=== PATIENT | male | born 1945 | race African-American/Black ===

== ENCOUNTER 2018-03-31 15:06 | Inpatient (IN) | payer MEDICARE, MEDICAID ==
[~2018-03-31] VITALS: Ht 170.2 cm; Wt 79.1 kg
[~2018-03-31 15:06] MED LIST: AMLO-511 PO; CARV12 PO; DIVA-78 PO; DOCU250C91 PO; FERR-89 PO; OMEP20 PO; QUET200T PO; TAMS0.4C32 PO; VITAD1000 PO
[2018-03-31 18:51] LABS: ANION GAP 9 mmol/L (8-16); CARBON DIOXIDE 29 mmol/L (22-29); CHLORIDE 103 mmol/L (98-107); CREATININE 1.14 mg/dL (0.60-1.30); GLUCOSE,RANDOM 94 mg/dL (70-110); INR 1.2 (0.9-1.1); POTASSIUM 3.5 mmol/L (3.5-5.1); SODIUM SERUM 141 mmol/L (136-145); UREA NITROGEN, BLOOD 13 mg/dL (7-18)
[2018-03-31 18:55] LABS: GLOMERULAR FILTR. RATE CALC > 60 mL/min (>60)
[2018-03-31 18:57] LABS: BASOPHILS % (AUTO) 0.4 % (0.0-2.0); EOSINOPHILS % (AUTO) 1.6 % (1.0-6.0); HEMATOCRIT 37.7 % (41-53); HEMOGLOBIN 12.2 g/dL (13.5-17.5); LYMPHOCYTES # (AUTO) 2.7 K/uL (1.0-4.8); LYMPHOCYTES % (AUTO) 48.2 % (22.0-44.0); MEAN CORPUSCULAR HEMOGLOBIN 21.9 pg (26.0-34.0); MEAN CORPUSCULAR HGB CONC 32.5 G/dL (31.0-37.0); MEAN CORPUSCULAR VOLUME 67 fL (80-100); MONOCYTES # (AUTO) 0.3 K/uL (0.1-1.0); MONOCYTES % (AUTO) 4.9 % (2.0-9.0); NEUTROPHILS # (AUTO) 2.5 K/uL (1.8-7.7); NEUTROPHILS % (AUTO) 44.9 % (40.0-70.0); PLATELET COUNT (AUTO) 176 K/uL (150-450); RED BLOOD CELL COUNT(AUTO) 5.59 MIL/uL (4.50-5.90); RED CELL DISTRIBUTION WIDTH 16.9 % (11.5-14.5)
[2018-03-31 19:16] LABS: ALANINE AMINOTRANSFERASE 75 U/L (12-78); ALBUMIN 3.5 g/dL (3.4-5.0); ALKALINE PHOSPHATASE 102 U/L (46-116); ASPARTATE AMINOTRANSFERASE 45 U/L (15-37); BILIRUBIN,TOTAL 0.9 mg/dL (0.1-1.0); CREATINE KINASE, TOTAL ONLY 133 U/L (39-308); TOTAL PROTEIN, SERUM 9.1 g/dL (6.4-8.2)
[2018-03-31 19:53] LABS: B-TYPE NATRIURETIC PEPTIDE 29 pg/mL (0-100)
[2018-03-31 21:49] LABS: APPEARANCE,URINE CLOUDY (CLEAR); BILIRUBIN,URINE NEGATIVE (NEGATIVE); GLUCOSE, URINE (UA) NEGATIVE (NEGATIVE); KETONES,URINE NEGATIVE (NEGATIVE); LEUKOCYTE ESTERASE ,URINE SMALL (NEGATIVE); NITRATE,URINE POSITIVE (NEGATIVE); OCCULT BLOOD,URINE NEGATIVE (NEGATIVE); PH,URINE 5.5 (5.0-8.0); PROTEIN,URINE NEGATIVE (NEGATIVE)
[2018-03-31 21:54] LABS: AMPHET/METH SCREEN,URINE NEGATIVE (NEGATIVE); BARBITURATE SCREEN, URINE NEGATIVE (NEGATIVE); BENZODIAZEPINES SCREEN,URINE NEGATIVE (NEGATIVE); CANNABINOID SCREEN,URINE NEGATIVE (NEGATIVE); COCAINE SCREEN,URINE NEGATIVE (NEGATIVE); METHADONE SCREEN, URINE NEGATIVE (NEGATIVE); OPIATE SCREEN,URINE NEGATIVE (NEGATIVE); PHENCYCLIDINE SCREEN,URINE NEGATIVE (NEGATIVE)
[2018-03-31 22:00] LABS: BACTERIA,URINE Many /HPF (None Seen); RBC,URINE None Seen /HPF (0-2); SQUAMOUS EPITHELIAL CELL,UR Rare /LPF (None Seen)
[2018-03-31] MEDS ORDERED: CloNIDine HCL 0.2 MG TABLET PO ONE (23:15)
[2018-04-01] MEDS ORDERED: ZOLPIDEM TARTRATE 10 MG TABLET PO PRN (01:15)
[2018-04-01] MEDS ORDERED: HALOPERIDOL 5 MG TABLET PO PRN (01:15)
[2018-04-01] MEDS ORDERED: LORazepam 2 MG TABLET PO PRN (01:15)
[2018-04-01 02:16] VITALS: BP 117/69
[2018-04-01] MEDS: OMEPRAZOLE 20 MG CAPSULE PO SCH (09:03)
[2018-04-01] MEDS: TAMSULOSIN HCL 0.4 MG CAPSULE PO SCH (09:04)
[2018-04-01] MEDS: CARVEDILOL 6.25 MG TABLET PO SCH ×2 (09:05→16:33)
[2018-04-01] MEDS: AmLODIPine BESYLATE 5 MG TABLET PO SCH (09:05)
[2018-04-01] MEDS: CHOLECALCIFEROL (VIT D3) 1,000 UNITS TABLET PO SCH (09:05)
[2018-04-01] MEDS: DOCUSATE SODIUM 250 MG CAPSULE PO SCH ×2 (09:05→16:33)
[2018-04-01] MEDS: FERROUS SULFATE 325 MG EC TABLET PO SCH (09:06)
[2018-04-01 13:59] VITALS: BP 154/80
[2018-04-01 16:17] VITALS: BP 138/85
[2018-04-01] MEDS: DIVALPROEX SODIUM 500 MG DR TABLET PO SCH (16:33)
[2018-04-01] MEDS: NITROFURANTOIN/NITROFURAN MAC 100 MG CAPSULE [MACROBID] PO SCH (18:00)
[2018-04-01] MEDS: QUEtiapine FUMARATE 300 MG TABLET PO SCH (20:54)
[2018-04-02 06:35] LABS: HEMOGLOBIN A1C 5.3 % (4.5-6.2)
[2018-04-02 06:47] LABS: CHOL/HDL RATIO 3.6 (4.2-7.3); FREE T4 (FREE THYROXINE) 0.74 ng/dL (0.76-1.46); THYROID STIMULATING HORMONE 1.24 uIU/mL (0.36-3.74)
[2018-04-02] MEDS: FERROUS SULFATE 325 MG EC TABLET PO SCH (09:55)
[2018-04-02] MEDS: CARVEDILOL 6.25 MG TABLET PO SCH ×2 (09:55→16:43)
[2018-04-02] MEDS: NITROFURANTOIN/NITROFURAN MAC 100 MG CAPSULE [MACROBID] PO SCH ×2 (09:55→16:43)
[2018-04-02] MEDS: CHOLECALCIFEROL (VIT D3) 1,000 UNITS TABLET PO SCH (09:55)
[2018-04-02] MEDS: TAMSULOSIN HCL 0.4 MG CAPSULE PO SCH (09:55)
[2018-04-02] MEDS: DIVALPROEX SODIUM 500 MG DR TABLET PO SCH ×2 (09:55→16:43)
[2018-04-02] MEDS: OMEPRAZOLE 20 MG CAPSULE PO SCH (09:55)
[2018-04-02] MEDS: DOCUSATE SODIUM 250 MG CAPSULE PO SCH ×2 (09:55→16:43)
[2018-04-02] MEDS: AmLODIPine BESYLATE 5 MG TABLET PO SCH (09:57)
[2018-04-02 10:50] VITALS: BP 132/85
[2018-04-02 16:00] VITALS: BP 152/86
[2018-04-02] MEDS: QUEtiapine FUMARATE 300 MG TABLET PO SCH (19:59)
[2018-04-03] MEDS: CHOLECALCIFEROL (VIT D3) 1,000 UNITS TABLET PO SCH (08:30)
[2018-04-03] MEDS: OMEPRAZOLE 20 MG CAPSULE PO SCH (08:30)
[2018-04-03] MEDS: DOCUSATE SODIUM 250 MG CAPSULE PO SCH ×2 (08:30→16:38)
[2018-04-03] MEDS: DIVALPROEX SODIUM 500 MG DR TABLET PO SCH ×2 (08:30→16:38)
[2018-04-03] MEDS: AmLODIPine BESYLATE 5 MG TABLET PO SCH (08:31)
[2018-04-03] MEDS: FERROUS SULFATE 325 MG EC TABLET PO SCH (08:32)
[2018-04-03] MEDS: CARVEDILOL 6.25 MG TABLET PO SCH ×2 (08:32→16:38)
[2018-04-03] MEDS: NITROFURANTOIN/NITROFURAN MAC 100 MG CAPSULE [MACROBID] PO SCH ×2 (08:32→16:37)
[2018-04-03] MEDS: TAMSULOSIN HCL 0.4 MG CAPSULE PO SCH (08:32)
[2018-04-03 13:39] VITALS: BP 147/95
[2018-04-03 16:00] VITALS: BP 134/79
[2018-04-03] MEDS: NICOTINE 14 MG/24 HOUR PATCH TD SCH (17:00)
[2018-04-03] MEDS ORDERED: QUET300T2 PO (17:02)
[2018-04-03] MEDS: FLUTICASONE/VILANTEROL 100-25 MCG/INH INHALER [14] IH SCH (18:56)
[2018-04-03] MEDS: TIOTROPIUM BROMIDE 18 MCG/INH HANDIHALER [5] IH SCH (18:56)
[2018-04-03] MEDS: QUEtiapine FUMARATE 300 MG TABLET PO SCH (20:09)
[2018-04-04] MEDS ORDERED: FLUT1AER IH (08:18)
[2018-04-04] MEDS ORDERED: MACR100 PO (08:19)
[2018-04-04] MEDS ORDERED: TIOT185 IH (08:19)
[2018-04-04] MEDS: OMEPRAZOLE 20 MG CAPSULE PO SCH (08:29)
[2018-04-04] MEDS: FERROUS SULFATE 325 MG EC TABLET PO SCH (08:29)
[2018-04-04] MEDS: CHOLECALCIFEROL (VIT D3) 1,000 UNITS TABLET PO SCH (08:29)
[2018-04-04] MEDS: DIVALPROEX SODIUM 500 MG DR TABLET PO SCH (08:29)
[2018-04-04] MEDS: DOCUSATE SODIUM 250 MG CAPSULE PO SCH (08:29)
[2018-04-04] MEDS: TIOTROPIUM BROMIDE 18 MCG/INH HANDIHALER [5] IH SCH (08:30)
[2018-04-04] MEDS: FLUTICASONE/VILANTEROL 100-25 MCG/INH INHALER [14] IH SCH (08:30)
[2018-04-04] MEDS: CARVEDILOL 6.25 MG TABLET PO SCH (08:31)
[2018-04-04] MEDS: TAMSULOSIN HCL 0.4 MG CAPSULE PO SCH (08:31)
[2018-04-04] MEDS: NITROFURANTOIN/NITROFURAN MAC 100 MG CAPSULE [MACROBID] PO SCH (08:31)
[2018-04-04] MEDS: AmLODIPine BESYLATE 5 MG TABLET PO SCH (08:33)
[2018-04-04] MEDS: NICOTINE 14 MG/24 HOUR PATCH TD SCH (09:00)
[2018-04-04 09:38] VITALS: BP 139/86
== END 2018-04-04 11:00 | DRG 885 ==
LOC: EMS 15:07 → 3EX 04-01 00:30
PROVIDERS: ADMIT Psychiatry & Neurology Psychiatry; ATTEND Psychiatry & Neurology Psychiatry
DX: F25.0 Schizoaffective disorder, bipolar type (principal); J44.1 Chronic obstructive pulmonary disease with (acute) exacerbation; N39.0 Urinary tract infection, site not specified; R45.851 Suicidal ideations; D64.9 Anemia, unspecified; F17.210 Nicotine dependence, cigarettes, uncomplicated; G89.29 Other chronic pain; I10 Essential (primary) hypertension; K21.9 Gastro-esophageal reflux disease without esophagitis; K59.00 Constipation, unspecified; N40.0 Benign prostatic hyperplasia without lower urinary tract symptoms; Z59.0 Homelessness; Z79.899 Other long term (current) drug therapy; Z99.3 Dependence on wheelchair; Z83.3 Family history of diabetes mellitus
CPT/HCPCS: 71250; 80074; 83036; 83735; 84439; 84443; 87086; 93005; G0378; G0480